=== PATIENT | female | born 1960 | race Caucasian/White ===

== ENCOUNTER → 2016-06-02 | Outpatient (CLI) | payer OTHER ==
[~2016-06-02] MED LIST: FLONASE16 GM NASBOTH; INDOCIN25 MG PO; NEURONTIN100 MG PO
== END | disposition short-term general hospital (02) ==
LOC: CLPAIN 08:50
DX: M54.17 Radiculopathy, lumbosacral region (principal); G57.70 Causalgia of unspecified lower limb

== ENCOUNTER 2016-06-16 13:23 | Day surgery (SDC) | payer OTHER | END 2016-06-16 15:24 | disposition short-term general hospital (02) | LOC: SURGOP 13:23 | PROC: 3E0R33Z Introduction of Anti-inflammatory into Spinal Canal, Percutaneous Approach (ICD-10-PCS; principal; 2016-06-16) | PROC: 3E0R3BZ Introduction of Anesthetic Agent into Spinal Canal, Percutaneous Approach (ICD-10-PCS; 2016-06-16) | DX: M54.17 Radiculopathy, lumbosacral region (principal); I10 Essential (primary) hypertension; G47.30 Sleep apnea, unspecified; G62.9 Polyneuropathy, unspecified; G60.9 Hereditary and idiopathic neuropathy, unspecified; E55.9 Vitamin D deficiency, unspecified; Z90.710 Acquired absence of both cervix and uterus; Z88.8 Allergy status to other drugs, medicaments and biological substances; Z79.899 Other long term (current) drug therapy; Z86.2 Personal history of diseases of the blood and blood-forming organs and certain disorders involving the immune mechanism; Z87.09 Personal history of other diseases of the respiratory system; Z86.69 Personal history of other diseases of the nervous system and sense organs | CPT/HCPCS: J1040; Q9967 ==